=== PATIENT | male | born 1960 | race Caucasian/White ===

== ENCOUNTER 2017-10-18 23:48 | Emergency (ER) | payer SELFPAY ==
[~2017-10-18] VITALS: Ht 180.3 cm; Wt 72.0 kg
[~2017-10-18 23:48] MED LIST: PREDNISONE50 MG PO; PROAIR RESPICL90 MCG IH; ZITHROMAX250 MG PO
[2017-10-19] MEDS ORDERED: BENADRYL25 MG PO (00:12)
[2017-10-19] MEDS ORDERED: ELIMITE 5% CREA60 GM TP (00:12)
[2017-10-19 00:33] VITALS: BP 155/97
== END 2017-10-19 00:34 | disposition home or self-care (01) ==
LOC: EME 23:48
DX: B86 Scabies (principal)
CPT/HCPCS: 99281; 99283